=== PATIENT | female | born 1940 | race Caucasian/White ===

== ENCOUNTER 2016-09-19 21:16 | Emergency (ER) | payer OTHER ==
--- NOTE | 2016-09-19 22:49 | ED CLINICAL REPORT ---
Clinical Report - Physicians/Mid Levels [facility] [address] [place] [address] 09/19/2016 21:18 Patient: JIHAN PABOL Time Seen: 21:40; initial patient contact. Arrived- By private vehicle. Historian- patient. HISTORY OF PRESENT ILLNESS Chief Complaint: DYSURIA. This started yesterday and still present. It was gradual in onset. The symptoms are described as mild. Modifying factors- worsened by urination. Not relieved by anything. The patient has had abdominal pain. No low back pain, flank pain or hematuria. She has had pain with urination and urgency of urination. The patient has had urinary frequency. Similar symptoms previously: None. Recent medical care: Not recently seen/assessed. REVIEW OF SYSTEMS No nausea, vomiting, diarrhea or fever. She has had chills. All systems otherwise negative, except as recorded above. PAST HISTORY ( Mitral Valve Prolapse. Sjogren's syndrome. Migraine Headache. Cervical Strain. Thyroid Disease. Chronic Back Pain. Contusion. Fibromyalgia. Depression. Angina. UTI - Urinary Tract Infection. Diabetes Mellitus. Heart Disease. Hypertension. ADDITIONAL SURGERIES: . Shoulder Surgery. Tonsillectomy.). SOCIAL HISTORY Never smoker. No alcohol use or drug use. ADDITIONAL NOTES The nursing notes have been reviewed. PHYSICAL EXAM Vital Signs: 09/19/2016 21:44 BP: 170/70. HR: 102. RR: 20. O2 saturation: 99%. Temp: 98.9 F. Pain level now: 7/10. Have been reviewed. Hypertensive. Tachycardic. Respiratory rate normal. Temperature normal. Oxygen saturation normal. Appearance: Alert. Oriented X3. No acute distress. HEENT: Normal external inspection. CVS: Heart sounds normal. Rate normal. Rhythm normal. Respiratory: No respiratory distress. Breath sounds normal. Abdomen: Soft. Mild tenderness in the suprapubic area with guarding present. Bowel sounds normal. No organomegaly. No mass. Back: No CVA tenderness. Skin: Skin warm and dry. Normal skin color. No rash. Neuro: Oriented X 3. LABS, X-RAYS, AND EKG Laboratory Tests: UA-Culture if indicated: (JEAN: 09/19/2016 22:00) ( MsgRcvd 09/19/2016 22:26) Final results Test Result Flag Units (Reference) URINE COLOR YELLOW URINE APPEARANCE SLIGHTLY HAZY URINE GLUCOSE NEGATIVE (NEGATIVE) URINE BILIRUBIN NEGATIVE (NEGATIVE) URINE KETONE NEGATIVE (NEGATIVE) URINE SPECIFIC GRAVITY 1.020 (1.010-1.030) URINE PH 5.5 (5.0-8.0) URINE PROTEIN NEGATIVE (NEGATIVE) URINE UROBILINOGEN 0.2 EU/dL (0.2-1.0) URINE NITRITE NEGATIVE (NEGATIVE) URINE BLOOD 1+ (NEGATIVE) URINE LEUK ESTERASE POSITIVE (NEGATIVE) URINE RBC 3-5 rbc/hpf (0-1) URINE WBC 25-50 wbc/hpf (0-1) URINE EPITHELIAL CELLS RARE EPI/hpf (0-5) URINE BACTERIA NONE SEEN (NONE SEEN) URINE COMMENT CULTURE INDICATED URINE CULTURES ARE SET-UP BASED ON THE FOLLOWING CRITERIA:POSITIVE NITRITEPOSITIVE LEUKOCYTE ESTERASEGREATER THAN 10 WHITE BLOOD CELLSMODERATE (2+) OR GREATER BACTERIA . PROGRESS AND PROCEDURES Disposition: Discharged home in good and improved condition. Condition: good. CLINICAL IMPRESSION Acute urinary tract infection with cystitis. INSTRUCTIONS Your Current Medications: CONTINUE TAKING THE FOLLOWING MEDICATIONS: Albuterol Sulfate HFA Inhalation : 2 puffs, prn. ASA Oral : 81mg daily. Atorvastatin Calcium Oral : 40 mg daily. FLUoxetine HCl Oral : 20 mg daily. Fluticasone Furoate Nasal : 1 spray per nare daily. Furosemide Oral : 40 mg, prn. Lantus Subcutaneous : 60 every PM. Levothyroxine Sodium Oral : 88 mcg daily. Losartan Potassium Oral : 50 mg daily. Maxalt Oral : 5 mg, prn. Metoprolol Succinate Oral : 100 mg daily. Nexium Oral : 40 mg daily. Nitroglycerin Translingual. NovoLOG Subcutaneous. Percocet Oral : 10/325 mg 3x a day. Potassium Chloride : 10meq once a week, prn. TiZANidine HCl Oral : Tablet 2 mg, 1 tablet at bedtime. Prescription Medications: Bactrim DS 800 mg / 160 mg: take 1 tablet orally every 12 hours for 3 days. No refill. Substitution is permissible. Clobex shampoo Lather to scalp daily for 15 minutes then rinse Max 50g/week Treat x 4 weeks max Disp 1 bottle no refills. Follow-up: Follow up with your doctor in about three days. Call for an appointment. Blood pressure screening was not performed during this visit because the patient has an active diagnosis of hypertension. (Electronically signed by Alessandro Bennett Dr. 09/20/2016 5:17)
--- NOTE | 2016-09-19 22:49 | ED ORDER SUMMARY ---
..... Patient: JIHAN PABLO OrderSheet Located Within [facility] VisitID: [id number] [address] [place] [address] 76y, F Registration Date/Time: 09/19/2016 ORDER SHEET Weight: 92.9 kg (stated) Allergies: Imipramine HCl, Tetanus Toxoids, Talwin- excessive sleeping GENERAL ORDERS: UA-Culture if indicated Urgent (22:09 09/19/2016 DDean R.NJosie per protocol) (22:31 Vincenzo ER [employer]) MEDICATION ORDERS: Bactrim DS PO (Tablet 800-160 mg) 1 tab (NOW) (22:45 09/19/2016 Elo Ibanez) ([facility] 22:48 Betzaida R.N.) (22:55 Betzaida Lozano.Burke.) IV FLUIDS: ORDER SHEET NOTES: [Electronically signed by Camilo Estrada R.N. (23:57 09/19/2016)] [Electronically signed by Alessandro Bennett Dr. (05:17 09/20/2016)] [Electronically locked/signed by Camilo Estrada R.N. (23:57 09/19/2016)]
--- NOTE | 2016-09-19 22:49 | ED NURSING NOTES ---
Clinical Report - Nurses [facility] [address] [place] [address] 09/19/2016 21:18 Patient: JIHAN PABLO TRIAGE Triage time 2145. Acuity: LEVEL 4. Chief Complaint: (UTI symptoms off and on x 2 weeks- getting worse). 21:45. --21:49 Haylie Collins R.N. 21:44 09/19/16. BP: 170/70. HR: 102. RR: 20. O2 saturation: 99%. Temp: 98.9 F. Pain level now: 09/08. --21:49 Haylie Collins R.N. Weight: 92.9 kg stated. Height/Length: 60.2 inches Per Patient. BMI: 39.7. --21:47 Haylie Collins R.N. Medications Albuterol Sulfate HFA Inhalation 2 puffs, as needed. ASA Oral 81mg , daily . Atorvastatin Calcium Oral 40 mg, daily. FLUoxetine HCl Oral 20 mg, daily. Fluticasone Furoate Nasal 1 spray per nare , daily . Furosemide Oral 40 mg, as needed. Lantus Subcutaneous 60, every PM. Levothyroxine Sodium Oral 88 mcg, daily. Losartan Potassium Oral 50 mg, daily. Maxalt Oral 5 mg, as needed. Metoprolol Succinate Oral 100 mg, daily . Nexium Oral 40 mg, daily. Nitroglycerin Translingual. NovoLOG Subcutaneous. Percocet Oral 10/325 mg, 3x a day. Potassium Chloride 10meq, once a week as needed. --21:47 Haylie Collins R.N. TiZANidine HCl Oral (Tablet 2 mg) 1 tablet, at bedtime. --21:47 Haylie Collins R.N. Allergies Imipramine HCl. Tetanus Toxoids. --21:47 Haylie Collins R.N. Talwin- excessive sleeping. --21:48 Haylie Collins R.N. History Arrived by private vehicle. Historian: patient. Accompanied by daughter. Primary physician ([place]). ( also c/o itching to scalp, has been checked for lice x 2.). She has had fever, hematuria and flank pain. ( states urine is cloudy). SOCIAL HX: Never smoker. No alcohol use or drug use. FALL RISK ASSESSMENT: Fall risk assessment completed. Risk factors identified include patient age greater than 65 years and history of fall; states she stumbles sometimes. --21:49 Haylie Collins R.N. PROBLEMS: Mitral Valve Prolapse. Sjogren's syndrome. Migraine Headache. Cervical Strain. Thyroid Disease. Chronic Back Pain. Contusion. Fibromyalgia. Depression. Angina. UTI - Urinary Tract Infection. Diabetes Mellitus. Heart Disease. Hypertension. --21:47 Haylie Collins R.N. ADDITIONAL SURGERIES: . Shoulder Surgery. Tonsillectomy. --21:47 Haylie Collins R.N. Interventions ID band on patient. To treatment room. --21:49 Haylie Collins R.N. PHYSICAL ASSESSMENT 21:45. Ambulatory to room. Patient gowned. GENERAL / NEURO / PSYCH: Alert. Oriented X 4. Appears in no acute distress. RESPIRATORY: Respirations not labored. CVS: Capillary refill less than 2 seconds. GI / : Pain with urination. She has had frequency of urination. Urgency of urination. SKIN: Skin is warm and dry. --21:51 Haylie Collins R.N. NURSING PROGRESS NOTES 21:45. Patient gowned. Head of bed elevated. Patient identifiers checked. Call light placed in reach. Side rails up. Bed placed in lowest position. --21:50 Haylie Collins R.N. 21:56 09/19/16. Patient ID band checked for patient name and birthdate. Clean catch urine collected with return of yellow-colored cloudy urine; sample sent to lab for urinalysis and culture. Specimen labeled in the presence of the patient. --21:59 Haylie Collins R.N. 22:30. Care transferred and report given. --22:47 Haylie Collins R.N. 22:51 09/19/2016 Bactrim DS (Sulfamethoxazole-TMP DS) PO 1 tab given. Allergies verified and confirmed 5 rights. --22:55 Camilo Estrada R.N. 22:53. The patient is calm and resting quietly. SKIN: Skin is warm and dry. Skin color within normal limits. --22:56 Camilo Estrada R.N. DISPOSITION / DISCHARGE Departure time: 2255. Condition at departure: stable. No learning barriers present. Discharge instructions provided and reviewed with the patient and family. Reviewed medication(s) side effects, precautions, dosing and course information. Prescription(s) given to the patient. Patient and family verbalized understanding. Written instructions provided in Mexican. The patient was discharged home and accompanied by family. She left the Emergency Department ambulatory and via private vehicle. Family member driving. FALL RISK ASSESSMENT: Fall risk assessment completed. No fall risk identified. --22:56 Camilo Estrada R.N. 22:55 09/19/16. BP: 151/83. HR: 98. RR: 16. O2 saturation: 96%. Pain level now: 07/09. --22:56 Camilo Estrada R.N. Locked/Released at 09/19/2016 23:57 by Camilo Estrada R.N.
--- NOTE | 2016-09-19 22:49 | ED ORDER SUMMARY ---
..... Patient: JIHAN PABLO OrderSheet [facility] VisitID: [id number] [address] [place] [address] 76y, F Registration Date/Time: 09/19/2016 ORDER SHEET Weight: 92.9 kg (stated) Allergies: Imipramine HCl, Tetanus Toxoids, Talwin- excessive sleeping GENERAL ORDERS: UA-Culture if indicated Urgent (22:09 09/19/2016 DDean R.NJosie per protocol) (22:31 [facility]) MEDICATION ORDERS: Bactrim DS PO (Tablet 800-160 mg) 1 tab (NOW) (22:45 09/19/2016 Elo Ibanez) ([facility] 22:48 Betzaida R.N.) (22:55 Betzaida Lozano.Burke.) IV FLUIDS: ORDER SHEET NOTES: [Electronically signed by Camilo Estrada R.N. (23:57 09/19/2016)] [Electronically signed by Alessandro Bennett Dr. (05:17 09/20/2016)] [Electronically locked/signed by Camilo Estrada R.N. (23:57 09/19/2016)]
--- NOTE | 2016-09-20 05:17 | ED MED RECONCILIATION SUMMARY ---
Patient: JIHAN PABLO Medication Reconciliation Report [facility] VisitID: [id number] [address] [place] [address] 76y, F Registration Date/Time: 09/19/2016 Weight: 92.9 kg Height/Length: (not available) BMI: 39.7 ALLERGIES: Imipramine HCl, Talwin- excessive sleeping, Tetanus Toxoids The patient's Home Medications are listed below: CONTINUE TAKING THE FOLLOWING MEDICATIONS: Albuterol Sulfate HFA Inhalation 2 puffs ASA Oral 81mg , daily Atorvastatin Calcium Oral 40 mg, daily FLUoxetine HCl Oral 20 mg, daily Fluticasone Furoate Nasal 1 spray per nare , daily Furosemide Oral 40 mg Lantus Subcutaneous 60, every PM Levothyroxine Sodium Oral 88 mcg, daily Losartan Potassium Oral 50 mg, daily Maxalt Oral 5 mg Metoprolol Succinate Oral 100 mg, daily Nexium Oral 40 mg, daily Nitroglycerin Translingual NovoLOG Subcutaneous Percocet Oral 10/325 mg, 3x a day Potassium Chloride 10meq, once a week TiZANidine HCl Oral (2 mg) 1 tablet, at bedtime The source(s) of the original Home Medication information: Not obtained. The following Medications were given to the patient in the Emergency Department: Bactrim DS [PO] PO 1 tab, administered: 09/19/2016 10:51:00 PM The following Medications were prescribed to the patient: Bactrim DS 800 mg / 160 mg: take 1 tablet orally every 12 hours for 3 days. No refill. Substitution is permissible. -- Alessandro Bennett Dr. Clobex shampooLather to scalp daily for 15 minutes then rinseMax 50g/weekTreat x 4 weeks maxDisp 1 bottleno refills. -- Alessandro Bennett Dr.
--- NOTE | 2016-09-20 05:17 | ED MED RECONCILIATION SUMMARY ---
Patient: JIHAN PABLO Medication Reconciliation Report [facility] VisitID: [id number] [address] [place] [address] 76y, F Registration Date/Time: 09/19/2016 Weight: 92.9 kg Height/Length: (not available) BMI: 39.7 ALLERGIES: Imipramine HCl, Talwin- excessive sleeping, Tetanus Toxoids The patient's Home Medications are listed below: CONTINUE TAKING THE FOLLOWING MEDICATIONS: Albuterol Sulfate HFA Inhalation 2 puffs ASA Oral 81mg , daily Atorvastatin Calcium Oral 40 mg, daily FLUoxetine HCl Oral 20 mg, daily Fluticasone Furoate Nasal 1 spray per nare , daily Furosemide Oral 40 mg Lantus Subcutaneous 60, every PM Levothyroxine Sodium Oral 88 mcg, daily Losartan Potassium Oral 50 mg, daily Maxalt Oral 5 mg Metoprolol Succinate Oral 100 mg, daily Nexium Oral 40 mg, daily Nitroglycerin Translingual NovoLOG Subcutaneous Percocet Oral 10/325 mg, 3x a day Potassium Chloride 10meq, once a week TiZANidine HCl Oral (2 mg) 1 tablet, at bedtime The source(s) of the original Home Medication information: Not obtained. The following Medications were given to the patient in the Emergency Department: Bactrim DS [PO] PO 1 tab, administered: 09/19/2016 10:51:00 PM The following Medications were prescribed to the patient: Bactrim DS 800 mg / 160 mg: take 1 tablet orally every 12 hours for 3 days. No refill. Substitution is permissible. -- Alessandro Bennett Dr. Clobex shampooLather to scalp daily for 15 minutes then rinseMax 50g/weekTreat x 4 weeks maxDisp 1 bottleno refills. -- Alessandro Bennett Dr.
--- NOTE | 2016-09-20 05:17 | ED MAR SUMMARY ---
..... Medication Administration Record [facility] [address] [place] [address] Patient: JIHAN PABLO Visit ID: [id number] 76y, F Weight: 92.9 kg Height/Length: 60.2 in BMI: 39.7 ALLERGIES: Talwin- excessive sleeping, Imipramine HCl, Tetanus Toxoids Given 22:51 09/19/2016 Camilo Estrada RJosieNJosie Medication Administered: BACTRIM DS [PO] (SULFAMETHOXAZOLE-TMP DS), Dose: 1 tab PO. Medication Ordered: Bactrim DS PO (Tablet 800-160 mg) 1 tab (NOW).
--- NOTE | 2016-09-20 05:17 | ED MAR SUMMARY ---
..... Medication Administration Record [facility] [address] [place] [address] Patient: JIHAN PABLO Visit ID: [id number] 76y, F Weight: 92.9 kg Height/Length: 60.2 in BMI: 39.7 ALLERGIES: Talwin- excessive sleeping, Imipramine HCl, Tetanus Toxoids Given 22:51 09/19/2016 Camilo Estrada RJosieNJosie Medication Administered: BACTRIM DS [PO] (SULFAMETHOXAZOLE-TMP DS), Dose: 1 tab PO. Medication Ordered: Bactrim DS PO (Tablet 800-160 mg) 1 tab (NOW).
--- NOTE | 2016-09-20 05:17 | ED DISCHARGE INSTRUCTIONS ---
Patient: JIHAN PABLO General Instructions [facility] VisitID: [id number] [place] [address] 76y, F Registration Date/Time: 09/19/2016 Acute urinary tract infection with cystitis. INSTRUCTIONS Your Current Medications: CONTINUE TAKING THE FOLLOWING MEDICATIONS: Albuterol Sulfate HFA Inhalation : 2 puffs, prn. ASA Oral : 81mg daily. Atorvastatin Calcium Oral : 40 mg daily. FLUoxetine HCl Oral : 20 mg daily. Fluticasone Furoate Nasal : 1 spray per nare daily. Furosemide Oral : 40 mg, prn. Lantus Subcutaneous : 60 every PM. Levothyroxine Sodium Oral : 88 mcg daily. Losartan Potassium Oral : 50 mg daily. Maxalt Oral : 5 mg, prn. Metoprolol Succinate Oral : 100 mg daily. Nexium Oral : 40 mg daily. Nitroglycerin Translingual. NovoLOG Subcutaneous. Percocet Oral : 10/325 mg 3x a day. Potassium Chloride : 10meq once a week, prn. TiZANidine HCl Oral : Tablet 2 mg, 1 tablet at bedtime. Prescription Medications: Bactrim DS 800 mg / 160 mg: take 1 tablet orally every 12 hours for 3 days. No refill. Substitution is permissible. Clobex shampoo Lather to scalp daily for 15 minutes then rinse Max 50g/week Treat x 4 weeks max Disp 1 bottle no refills. Follow-up: Follow up with your doctor in about three days. Call for an appointment. Blood pressure screening was not performed during this visit because the patient has an active diagnosis of hypertension. ADDITIONAL INFORMATION Bladder Infection,Female (Adult) A bladder infection ("cystitis" or "UTI") usually causes a constant urge to urinate and a burning when passing urine. Urine may be cloudy, smelly or dark. There may be pain in the lower abdomen. A bladder infection occurs when bacteria from the vaginal area enter the bladder opening (urethra). This can occur from sexual intercourse, wearing tight clothing, dehydration and other factors. Home Care: Drink lots of fluids (at least 6-8 glasses a day, unless you must restrict fluids for other medical reasons). This will force the medicine into your urinary system and flush the bacteria out of your body. Avoid sexual intercourse until your symptoms are gone. Avoid caffeine, alcohol and spicy foods. These can irritate the bladder. A bladder infection is treated with antibiotics. You may also be given Pyridium (generic = phenazopyridine) to reduce the burning sensation. This medicine will cause your urine to become a bright orange color. The orange urine may stain clothing. You may wear a pad or panty-liner to protect clothing. Preventing Future Infections: Always wipe from front to back after a bowel movement. Keep the genital area clean and dry. Drink plenty of fluids each day to avoid dehydration. Both sexual partners should wash before intercourse. Urinate right after intercourse to flush out the bladder. Wear cotton underwear and cotton-lined panty hose; avoid tight-fitting pants. If you are on control pills and are having frequent bladder infections, discuss with your doctor. Follow Up: Return to this facility or see your doctor if ALL symptoms are not gone after three days of treatment. Get Prompt Medical Attention if any of the following occur: Fever of 100.4F (38C) or higher, or as directed by your healthcare provider No improvement by the third day of treatment Increasing back or abdominal pain Repeated vomiting; unable to keep medicine down Weakness, dizziness or fainting Vaginal discharge Pain, redness or swelling in the labia (outer vaginal area) Sulfamethoxazole, Trimethoprim Oral tablet What is this medicine? SULFAMETHOXAZOLE; TRIMETHOPRIM or SMX-TMP (suhl fuh meth OK eric zohl; trye METH oh prim) is a combination of a sulfonamide antibiotic and a second antibiotic, trimethoprim. It is used to treat or prevent certain kinds of bacterial infections. It will not work for colds, flu, or other viral infections. How should I use this medicine? Take this medicine by mouth with a full glass of water. Follow the directions on the prescription label. Take your medicine at regular intervals. Do not take it more often than directed. Do not skip doses or stop your medicine early. Talk to your ems educator regarding the use of this medicine in children. Special care may be needed. This medicine has been used in children as young as 2 months of age. What side effects may I notice from receiving this medicine? Side effects that you should report to your doctor or health director of medicare as soon as possible: allergic reactions like skin rash or hives, swelling of the face, lips, or tongue breathing problems fever or chills, sore throat irregular heartbeat, chest pain joint or muscle pain pain or difficulty passing urine red pinpoint spots on skin redness, blistering, peeling or loosening of the skin, including inside the mouth unusual bleeding or bruising unusually weak or tired yellowing of the eyes or skin Side effects that usually do not require medical attention (report to your doctor or health director of medicare if they continue or are bothersome): diarrhea dizziness headache loss of appetite nausea, vomiting nervousness What may interact with this medicine? Do not take this medicine with any of the following medications: aminobenzoate potassium dofetilide metronidazole This medicine may also interact with the following medications: MEKA inhibitors like benazepril, enalapril, lisinopril, and ramipril cyclosporine digoxin diuretics indomethacin medicines for diabetes methenamine methotrexate phenytoin potassium supplements pyrimethamine sulfinpyrazone tricyclic antidepressants warfarin What if I miss a dose? If you miss a dose, take it as soon as you can. If it is almost time for your next dose, take only that dose. Do not take double or extra doses. Where should I keep my medicine? Keep out of the reach of children. Store at room temperature between 20 to 25 degrees C (68 to 77 degrees F). Protect from light. Throw away any unused medicine after the expiration date. What should I tell my health care provider before I take this medicine? They need to know if you have any of these conditions: anemia asthma being treated with anticonvulsants if you frequently drink alcohol containing drinks kidney disease liver disease low level of folic acid or [id number] dehydrogenase poor nutrition or malabsorption porphyria severe allergies thyroid disorder an unusual or allergic reaction to sulfamethoxazole, trimethoprim, sulfa drugs, other medicines, foods, dyes, or preservatives or trying to get breast-feeding What should I watch for while using this medicine? Tell your doctor or health director of medicare if your symptoms do not improve. Drink several glasses of water a day to reduce the risk of kidney problems. Do not treat diarrhea with over the counter products. Contact your doctor if you have diarrhea that lasts more than 2 days or if it is severe and watery. This medicine can make you more sensitive to the sun. Keep out of the sun. If you cannot avoid being in the sun, wear protective clothing and use a sunscreen. Do not use sun lamps or tanning beds/booths. You have been given the following additional information: Bladder Infection, Female (Adult) Sulfamethoxazole, Trimethoprim Oral tablet (Electronically signed by Alessandro Bennett Dr. 09/20/2016 5:17)
--- NOTE | 2016-09-20 05:17 | ED DISCHARGE INSTRUCTIONS ---
Patient: JIHAN PABLO General Instructions [facility] VisitID: [id number] [place] [address] 76y, F Registration Date/Time: 09/19/2016 Acute urinary tract infection with cystitis. INSTRUCTIONS Your Current Medications: CONTINUE TAKING THE FOLLOWING MEDICATIONS: Albuterol Sulfate HFA Inhalation : 2 puffs, prn. ASA Oral : 81mg daily. Atorvastatin Calcium Oral : 40 mg daily. FLUoxetine HCl Oral : 20 mg daily. Fluticasone Furoate Nasal : 1 spray per nare daily. Furosemide Oral : 40 mg, prn. Lantus Subcutaneous : 60 every PM. Levothyroxine Sodium Oral : 88 mcg daily. Losartan Potassium Oral : 50 mg daily. Maxalt Oral : 5 mg, prn. Metoprolol Succinate Oral : 100 mg daily. Nexium Oral : 40 mg daily. Nitroglycerin Translingual. NovoLOG Subcutaneous. Percocet Oral : 10/325 mg 3x a day. Potassium Chloride : 10meq once a week, prn. TiZANidine HCl Oral : Tablet 2 mg, 1 tablet at bedtime. Prescription Medications: Bactrim DS 800 mg / 160 mg: take 1 tablet orally every 12 hours for 3 days. No refill. Substitution is permissible. Clobex shampoo Lather to scalp daily for 15 minutes then rinse Max 50g/week Treat x 4 weeks max Disp 1 bottle no refills. Follow-up: Follow up with your doctor in about three days. Call for an appointment. Blood pressure screening was not performed during this visit because the patient has an active diagnosis of hypertension. ADDITIONAL INFORMATION Bladder Infection,Female (Adult) A bladder infection ("cystitis" or "UTI") usually causes a constant urge to urinate and a burning when passing urine. Urine may be cloudy, smelly or dark. There may be pain in the lower abdomen. A bladder infection occurs when bacteria from the vaginal area enter the bladder opening (urethra). This can occur from sexual intercourse, wearing tight clothing, dehydration and other factors. Home Care: Drink lots of fluids (at least 6-8 glasses a day, unless you must restrict fluids for other medical reasons). This will force the medicine into your urinary system and flush the bacteria out of your body. Avoid sexual intercourse until your symptoms are gone. Avoid caffeine, alcohol and spicy foods. These can irritate the bladder. A bladder infection is treated with antibiotics. You may also be given Pyridium (generic = phenazopyridine) to reduce the burning sensation. This medicine will cause your urine to become a bright orange color. The orange urine may stain clothing. You may wear a pad or panty-liner to protect clothing. Preventing Future Infections: Always wipe from front to back after a bowel movement. Keep the genital area clean and dry. Drink plenty of fluids each day to avoid dehydration. Both sexual partners should wash before intercourse. Urinate right after intercourse to flush out the bladder. Wear cotton underwear and cotton-lined panty hose; avoid tight-fitting pants. If you are on control pills and are having frequent bladder infections, discuss with your doctor. Follow Up: Return to this facility or see your doctor if ALL symptoms are not gone after three days of treatment. Get Prompt Medical Attention if any of the following occur: Fever of 100.4F (38C) or higher, or as directed by your healthcare provider No improvement by the third day of treatment Increasing back or abdominal pain Repeated vomiting; unable to keep medicine down Weakness, dizziness or fainting Vaginal discharge Pain, redness or swelling in the labia (outer vaginal area) Sulfamethoxazole, Trimethoprim Oral tablet What is this medicine? SULFAMETHOXAZOLE; TRIMETHOPRIM or SMX-TMP (suhl fuh meth OK eric zohl; trye METH oh prim) is a combination of a sulfonamide antibiotic and a second antibiotic, trimethoprim. It is used to treat or prevent certain kinds of bacterial infections. It will not work for colds, flu, or other viral infections. How should I use this medicine? Take this medicine by mouth with a full glass of water. Follow the directions on the prescription label. Take your medicine at regular intervals. Do not take it more often than directed. Do not skip doses or stop your medicine early. Talk to your enterprise project manager regarding the use of this medicine in children. Special care may be needed. This medicine has been used in children as young as 2 months of age. What side effects may I notice from receiving this medicine? Side effects that you should report to your doctor or health transitional care nurse as soon as possible: allergic reactions like skin rash or hives, swelling of the face, lips, or tongue breathing problems fever or chills, sore throat irregular heartbeat, chest pain joint or muscle pain pain or difficulty passing urine red pinpoint spots on skin redness, blistering, peeling or loosening of the skin, including inside the mouth unusual bleeding or bruising unusually weak or tired yellowing of the eyes or skin Side effects that usually do not require medical attention (report to your doctor or health transitional care nurse if they continue or are bothersome): diarrhea dizziness headache loss of appetite nausea, vomiting nervousness What may interact with this medicine? Do not take this medicine with any of the following medications: aminobenzoate potassium dofetilide metronidazole This medicine may also interact with the following medications: MEKA inhibitors like benazepril, enalapril, lisinopril, and ramipril cyclosporine digoxin diuretics indomethacin medicines for diabetes methenamine methotrexate phenytoin potassium supplements pyrimethamine sulfinpyrazone tricyclic antidepressants warfarin What if I miss a dose? If you miss a dose, take it as soon as you can. If it is almost time for your next dose, take only that dose. Do not take double or extra doses. Where should I keep my medicine? Keep out of the reach of children. Store at room temperature between 20 to 25 degrees C (68 to 77 degrees F). Protect from light. Throw away any unused medicine after the expiration date. What should I tell my health care provider before I take this medicine? They need to know if you have any of these conditions: anemia asthma being treated with anticonvulsants if you frequently drink alcohol containing drinks kidney disease liver disease low level of folic acid or [id number] dehydrogenase poor nutrition or malabsorption porphyria severe allergies thyroid disorder an unusual or allergic reaction to sulfamethoxazole, trimethoprim, sulfa drugs, other medicines, foods, dyes, or preservatives or trying to get breast-feeding What should I watch for while using this medicine? Tell your doctor or health transitional care nurse if your symptoms do not improve. Drink several glasses of water a day to reduce the risk of kidney problems. Do not treat diarrhea with over the counter products. Contact your doctor if you have diarrhea that lasts more than 2 days or if it is severe and watery. This medicine can make you more sensitive to the sun. Keep out of the sun. If you cannot avoid being in the sun, wear protective clothing and use a sunscreen. Do not use sun lamps or tanning beds/booths. You have been given the following additional information: Bladder Infection, Female (Adult) Sulfamethoxazole, Trimethoprim Oral tablet (Electronically signed by Alessandro Bennett Dr. 09/20/2016 5:17)
== END 2016-09-19 22:55 | disposition home or self-care (01) ==
LOC: ED SRH 21:16
DX: N30.00 Acute cystitis without hematuria (principal); L29.8 Other pruritus; E07.9 Disorder of thyroid, unspecified; E11.9 Type 2 diabetes mellitus without complications; I10 Essential (primary) hypertension; Z79.82 Long term (current) use of aspirin; Z79.4 Long term (current) use of insulin; Z79.52 Long term (current) use of systemic steroids; Z79.899 Other long term (current) drug therapy; Z88.7 Allergy status to serum and vaccine
CPT/HCPCS: 90004; 90025; 90148; 90469